=== PATIENT | female | born 1965 | race Caucasian/White ===

== ENCOUNTER → 2021-03-09 | Outpatient (CLI) | payer OTHER | LOC: KOH-I 11:10 | DX: R55 Syncope and collapse (principal); I65.22 Occlusion and stenosis of left carotid artery | CPT/HCPCS: 93880 ==

== ENCOUNTER → 2021-09-12 | Outpatient (CLI) | payer OTHER | LOC: HEART 5 08:27 | DX: I10 Essential (primary) hypertension (principal); I20.8 Other forms of angina pectoris; I08.1 Rheumatic disorders of both mitral and tricuspid valves | CPT/HCPCS: 78452; 93306; A9502; J2785 ==

== ENCOUNTER → 2021-10-19 | Outpatient (CLI) | payer OTHER ==
[2021-10-19 11:25] LABS: HEMOGLOBIN 13.9 gm/dl (12.3-15.3); RED BLOOD COUNT 4.54 M/UL (4.00-5.10); WHITE BLOOD COUNT 9.2 K/UL (4.5-11.0)
[2021-10-19 11:48] LABS: BUN/CREATININE RATIO 22 (0-10)
== END ==
LOC: LAB 10:56
PROVIDERS: Internal Medicine Interventional Cardiology
DX: I20.8 Other forms of angina pectoris (principal); R94.39 Abnormal result of other cardiovascular function study; I10 Essential (primary) hypertension; G47.33 Obstructive sleep apnea (adult) (pediatric); E11.9 Type 2 diabetes mellitus without complications; J45.991 Cough variant asthma
CPT/HCPCS: 36415; 80048; 85025; 85610; 85730; 93005

== ENCOUNTER → 2021-10-30 | Outpatient (CLI) | payer OTHER ==
[~2021-10-30] MED LIST: ADMELOG SO100 UNIT/1 SC; COZAAR100 MG PO; CYMBALTA 30 MG30 MG PO; DIFLUCAN100 MG PO; DITROPAN XL10 MG PO; GLUCOPHAGE 500500 MG GT; HYDROCODON-ACE1 EAC6 PO; IBUPROFEN800 MG PO; IMITREX100 MG PO; LANTUS SOL100 UNIT/1 SQ; LIPITOR20 MG PO; MAXZIDE 37.5 M1 EACH PO; NEURONTIN600 MG PO; SINGULAIR10 MG PO; TOPROL XL25 MG PO; VAZALORE81 MG PO
== END ==
LOC: CATH 06:36
DX: I25.118 Atherosclerotic heart disease of native coronary artery with other forms of angina pectoris (principal); I10 Essential (primary) hypertension; E11.9 Type 2 diabetes mellitus without complications; J45.909 Unspecified asthma, uncomplicated; G47.33 Obstructive sleep apnea (adult) (pediatric); Z79.899 Other long term (current) drug therapy; Z79.82 Long term (current) use of aspirin; Z79.4 Long term (current) use of insulin; Z79.84 Long term (current) use of oral hypoglycemic drugs
CPT/HCPCS: 82962; 85347; 93571; 99152; 99153; C1769; C1887; C1894; J0153; J1644; J2250; J3010; J7030; Q9967